=== PATIENT | female | born 2000 | race Caucasian/White ===

== ENCOUNTER 2020-01-05 22:00 | Emergency (ER) | payer OTHER, BC ==
[~2020-01-05] VITALS: Ht 157.4 cm; Wt 54.4 kg
== END 2020-01-06 00:58 | disposition home or self-care (01) ==
LOC: ED 22:00
DX: T14.8XXA Other injury of unspecified body region, initial encounter (principal); M25.562 Pain in left knee; M25.561 Pain in right knee; M25.531 Pain in right wrist; M25.532 Pain in left wrist; F41.9 Anxiety disorder, unspecified; Z90.710 Acquired absence of both cervix and uterus; V89.2XXA Person injured in unspecified motor-vehicle accident, traffic, initial encounter; Y93.89 Activity, other specified; Y92.89 Other specified places as the place of occurrence of the external cause; Y99.8 Other external cause status